=== PATIENT | female | born 1960 | race Caucasian/White ===

== ENCOUNTER 2017-12-11 05:45 | Inpatient (IN) | payer OTHER ==
[~2017-12-11] VITALS: Ht 167.6 cm; Wt 86.0 kg
[~2017-12-11 05:45] MED LIST: ACET-784 PO; ATOR40TA28 PO; CELE200 PO; CYCL10 PO; IBUP-2071 PO; MAGN500C4 PO; OMEG-135 PO; VITAD1000 PO
[2017-12-11] MEDS ORDERED: CLINDAMYCIN 600 MG/D5% WATER 50 ML IV ONE (06:00)
[2017-12-11] MEDS ORDERED: RINGERS SOLUTION,LACTATED 1,000 ML IV SCH (06:00)
[2017-12-11] MEDS ORDERED: SODIUM CHLORIDE 0.9% 10 ML ONE (07:01)
[2017-12-11] MEDS ORDERED: SODIUM CHLORIDE 0.9% 0 ML IV ONE (07:02)
[2017-12-11] MEDS ORDERED: BACITRACIN 50,000 UNITS/VIAL ONE (07:02)
[2017-12-11] MEDS ORDERED: THROMBIN, BOVINE 20000 UNITS/VIAL POWDER TP ONE (07:02)
[2017-12-11] MEDS ORDERED: GELATIN SPONGE,ABSORBABLE 100 MM TP ONE (07:02)
[2017-12-11 07:21] LABS: BILIRUBIN,URINE NEGATIVE (NEGATIVE); GLUCOSE, URINE (UA) NEGATIVE (NEGATIVE); KETONES,URINE NEGATIVE (NEGATIVE); LEUKOCYTE ESTERASE ,URINE TRACE (NEGATIVE); NITRATE,URINE NEGATIVE (NEGATIVE); OCCULT BLOOD,URINE TRACE (NEGATIVE); PROTEIN,URINE NEGATIVE (NEGATIVE); UROBILINOGEN,URINE 0.2 mg/dL (<=1.0)
[2017-12-11 07:26] LABS: APPEARANCE,URINE HAZY (CLEAR)
[2017-12-11 07:27] LABS: BACTERIA,URINE Rare /HPF (None Seen); RBC,URINE None Seen /HPF (0-2); SQUAMOUS EPITHELIAL CELL,UR Moderate /LPF (None Seen)
[2017-12-11] MEDS ORDERED: FentaNYL CITRATE-PF 100 MCG/2 ML VIAL IVP PRN (09:30)
[2017-12-11] MEDS ORDERED: CYCLOBENZAPRINE HCL 10 MG TABLET PO PRN (09:30)
[2017-12-11] MEDS ORDERED: HYDROmorphone 2 MG/ML SYRINGE IVP PRN (09:30)
[2017-12-11] MEDS ORDERED: ONDANSETRON HCL 4 MG/2 ML VIAL IVP PRN ×2 (09:30→10:00)
[2017-12-11] MEDS ORDERED: OxyCODONE HCL/ACETAMINOPHEN 10-325 MG TABLET PO PRN (09:30)
[2017-12-11] MEDS ORDERED: MEPERIDINE HCL/PF 25 MG/0.5 ML AMP IVP PRN (09:30)
[2017-12-11] MEDS ORDERED: RINGERS SOLUTION,LACTATED 1,000 ML IV ONE (09:38)
[2017-12-11] MEDS ORDERED: MAG HYDROX/AL HYDROX/SIMETH 30 ML SUSP UDCUP PO PRN (10:00)
[2017-12-11] MEDS ORDERED: BENZOCAINE/MENTHOL LOZENGE PO PRN (10:00)
[2017-12-11] MEDS: NICOTINE 21 MG/24 HOUR PATCH TD SCH (10:00)
[2017-12-11] MEDS ORDERED: ACETAMINOPHEN 325 MG TABLET PO PRN (10:00)
[2017-12-11] MEDS: RINGERS SOLUTION,LACTATED 1,000 ML IV SCH (10:15)
[2017-12-11] MEDS ORDERED: HYDROmorphone 2 MG/ML SYRINGE ONE (10:41)
[2017-12-11] MEDS: HYDROmorphone 2 MG/ML SYRINGE IVP PRN ×3 (10:43→15:43)
[2017-12-11 13:15] VITALS: BP 141/86
[2017-12-11] MEDS: CLINDAMYCIN 600 MG/D5% WATER 50 ML IV SCH ×2 (15:40→22:52)
[2017-12-11 15:42] VITALS: BP 156/82
[2017-12-11] MEDS: OXYGEN THERAPY IH SCH ×3 (15:43→20:00)
[2017-12-11] MEDS: DOCUSATE SODIUM 100 MG CAPSULE PO SCH (19:59)
[2017-12-11 20:06] VITALS: BP_SYST 108; BP_SYST 137; BP_DIAS 53; BP_DIAS 79
[2017-12-11] MEDS ORDERED: ATORVASTATIN CALCIUM 40 MG TABLET PO SCH (21:00)
[2017-12-11] MEDS ORDERED: CELECOXIB 200 MG CAPSULE PO SCH (21:00)
[2017-12-12 00:03] VITALS: BP 105/52
[2017-12-12] MEDS: RINGERS SOLUTION,LACTATED 1,000 ML IV SCH (02:33)
[2017-12-12 05:19] VITALS: BP 140/78
[2017-12-12] MEDS ORDERED: MORPHINE SULFATE 4 MG/ML SYRINGE IVP ONE (05:46)
[2017-12-12] MEDS ORDERED: MIDAZOLAM HCL 2 MG/2 ML VIAL IVP ONE (05:46)
[2017-12-12] MEDS ORDERED: FentaNYL CITRATE-PF 250 MCG/5 ML VIAL IVP ONE (05:46)
[2017-12-12] MEDS ORDERED: FentaNYL CITRATE-PF 100 MCG/2 ML VIAL IVP ONE (05:46)
[2017-12-12] MEDS ORDERED: KETAMINE HCL 50 MG/ML 10 ML VIAL IVP ONE (05:46)
[2017-12-12] MEDS ORDERED: EPHEDrine SULFATE 50 MG/ML VIAL IM ONE (06:02)
[2017-12-12] MEDS ORDERED: DEXAMETHASONE SOD PHOS 4 MG/ML VIAL IVP ONE ×2 (06:02→08:15)
[2017-12-12] MEDS ORDERED: SUCCINYLCHOLINE CHLORIDE 20 MG/ML 10 ML VIAL IVP ONE (06:02)
[2017-12-12] MEDS ORDERED: 0.9% SODIUM CHLORIDE 10 ML VIAL IVP ONE (06:02)
[2017-12-12] MEDS ORDERED: ROCURONIUM BROMIDE 10 MG/ML 5 ML VIAL IVP ONE (06:02)
[2017-12-12] MEDS ORDERED: PROPOFOL 1% 20 ML VIAL IVP ONE (06:02)
[2017-12-12] MEDS ORDERED: LIDOCAINE HCL/PF 2% 5 ML VIAL IM ONE (06:02)
[2017-12-12 06:50] LABS: EOSINOPHILS % (AUTO) 0 % (1.0-6.0); HEMATOCRIT 38.2 % (36-46); HEMOGLOBIN 13.3 g/dL (12.0-16.0); LYMPHOCYTES # (AUTO) 1.3 K/uL (1.0-4.8); LYMPHOCYTES % (AUTO) 11.4 % (22.0-44.0); MEAN CORPUSCULAR HEMOGLOBIN 29.1 pg (26.0-34.0); MEAN CORPUSCULAR HGB CONC 34.8 G/dL (31.0-37.0); MEAN CORPUSCULAR VOLUME 84 fL (80-100); MONOCYTES # (AUTO) 0.7 K/uL (0.1-1.0); NEUTROPHILS # (AUTO) 9.5 K/uL (1.8-7.7); NEUTROPHILS % (AUTO) 82.6 % (40.0-70.0); PLATELET COUNT (AUTO) 259 K/uL (150-450); RED BLOOD CELL COUNT(AUTO) 4.58 MIL/uL (4.00-5.20); RED CELL DISTRIBUTION WIDTH 13.1 % (11.5-14.5)
[2017-12-12 07:29] LABS: ANION GAP 9 mmol/L (8-16); CALCIUM, TOTAL 9.1 mg/dL (8.8-10.5); CARBON DIOXIDE 27 mmol/L (22-29); CHLORIDE 104 mmol/L (98-107); CREATININE 0.76 mg/dL (0.60-1.30); GLOMERULAR FILTR. RATE CALC > 60 mL/min (>60); GLUCOSE,RANDOM 113 mg/dL (70-110); POTASSIUM 3.9 mmol/L (3.5-5.1); SODIUM SERUM 140 mmol/L (136-145); UREA NITROGEN, BLOOD 14 mg/dL (7-18)
[2017-12-12 08:00] VITALS: BP 123/74
[2017-12-12] MEDS: OXYGEN THERAPY IH SCH (08:00)
[2017-12-12] MEDS: DOCUSATE SODIUM 100 MG CAPSULE PO SCH (09:27)
[2017-12-12] MEDS: NICOTINE 21 MG/24 HOUR PATCH TD SCH (09:28)
[2017-12-12] MEDS ORDERED: OXYC-38 PO (10:53)
[2017-12-12] MEDS ORDERED: CYCL10 PO (10:53)
[2017-12-12] MEDS ORDERED: OMEP20 PO (10:55)
[2017-12-12 12:07] VITALS: BP 125/73
== END 2017-12-12 11:50 | disposition home or self-care (01) | DRG 472 ==
LOC: 6N 05:45
PROVIDERS: ADMIT Neurological Surgery; ATTEND Neurological Surgery
PROC: 0RB30ZZ Excision of Cervical Vertebral Disc, Open Approach (ICD-10-PCS; 2017-12-11)
PROC: 4A11X4G Monitoring of Peripheral Nervous Electrical Activity, Intraoperative, External Approach (ICD-10-PCS; 2017-12-11)
PROC: 0RG20A0 Fusion of 2 or more Cervical Vertebral Joints with Interbody Fusion Device, Anterior Approach, Anterior Column, Open Approach (ICD-10-PCS; principal; 2017-12-11 07:30)
DX: M43.22 Fusion of spine, cervical region (principal); M50.021 Cervical disc disorder at C4-C5 level with myelopathy; M50.022 Cervical disc disorder at C5-C6 level with myelopathy; M48.02 Spinal stenosis, cervical region; M25.78 Osteophyte, vertebrae; M50.121 Cervical disc disorder at C4-C5 level with radiculopathy; M50.122 Cervical disc disorder at C5-C6 level with radiculopathy; Z88.0 Allergy status to penicillin
CPT/HCPCS: 86850; 86900; 86901; 87081; 87086; 93005; 97116; 97162; C1713; G0238; J0330; J1100; J1170; J2250; J2270; J2405; J2704; J3010; J3490; J7050; J7120